=== PATIENT | male | born 1955 | race Caucasian/White ===

== ENCOUNTER → 2020-06-14 13:36 | Outpatient (BNVA) | payer OTHER, SELFPAY | PROVIDERS: PCP Internal Medicine Sports Medicine; Visit Provider Internal Medicine | DX: I10 Essential (primary) hypertension (principal); I49.3 Ventricular premature depolarization; Z79.899 Other long term (current) drug therapy | CPT/HCPCS: 93005 ==

== ENCOUNTER 2020-06-18 10:12 | Outpatient (REF) | payer OTHER, SELFPAY ==
[2020-06-18 11:04] LABS: Anion Gap 10 (12-20); Blood Urea Nitrogen 11 mg/dL (9-16); Calcium 9.3 mg/dL (8.4-10.2); Carbon Dioxide 33 mmol/L (22-29); Chloride 100 mmol/L (96-108); Estimated Glomerular Filt Rate > 60; Glucose Random 103 mg/dL (60-115); Sodium 139 mmol/L (135-145)
== END 2020-06-18 10:13 | disposition home or self-care (01) ==
LOC: HO.LAB 10:12
PROVIDERS: PCP Internal Medicine Sports Medicine; Visit Provider Internal Medicine
DX: I10 Essential (primary) hypertension (principal)
CPT/HCPCS: 80048

== ENCOUNTER → 2020-11-07 08:15 | Outpatient (BNVA) | payer OTHER, SELFPAY | PROVIDERS: PCP Internal Medicine Sports Medicine; Visit Provider Internal Medicine | DX: S01.01XA Laceration without foreign body of scalp, initial encounter (principal); W31.9XXA Contact with unspecified machinery, initial encounter | CPT/HCPCS: 12002; 90715; 99203 ==

== ENCOUNTER → 2020-11-09 10:04 | Outpatient (BNVA) | payer OTHER, SELFPAY | PROVIDERS: PCP Internal Medicine Sports Medicine; Visit Provider Physician Assistant | DX: S01.01XA Laceration without foreign body of scalp, initial encounter (principal); X58.XXXA Exposure to other specified factors, initial encounter | CPT/HCPCS: 99213 ==

== ENCOUNTER → 2020-11-17 09:01 | Outpatient (BNVA) | payer OTHER, SELFPAY | PROVIDERS: PCP Internal Medicine Sports Medicine; Visit Provider Internal Medicine | DX: S01.01XD Laceration without foreign body of scalp, subsequent encounter (principal); X58.XXXD Exposure to other specified factors, subsequent encounter | CPT/HCPCS: 99212; 99213 ==

== ENCOUNTER → 2020-11-22 15:12 | Outpatient (REF) | payer OTHER, SELFPAY ==
--- NOTE | 2020-11-22 14:35 | ECG_ITS ---
Hook-up date: 2020-11-22 15:23:00 Duration: 41:02:00 Test Indications: PVC'S Medications: 029348 QRS complexes 16537 Ventricular ectopics which represent 16 % of total QRS comp. 39 Supraventricular ectopics which represent <1 % of total QRS comp. * Paced QRS complexs which represent % of total QRS comp. VENTRICULAR ECTOPY 18697 Isolated 784 Bigeminal Cycles 1243 Couplets 42 Runs 129 Beats in Runs 5 Beats LONGEST at 123 BPM at 17:10:39 2020-11-22 3 Beats FASTEST at 174 BPM at 17:19:26 2020-11-22 SUPRAVENTRICULAR ECTOPY 31 Isolated 1 Couplets 1 Runs 6 Beats in Runs 6 Beats LONGEST at 132 BPM at 15:37:02 2020-11-22 6 Beats FASTEST at 132 BPM at 15:37:02 2020-11-22 HEART RATES 46 MIN at 03:55:59 2020-11-23 78 AVG 112 MAX at 12:12:22 2020-11-23 LONGEST RR 1.8640 secs at 03:51:18 2020-11-23 S-T LEVELS Channel 1 - 128 mm at 15:23:00 2020-11-22 - 128 mm at 15:23:00 2020-11-22 Channel 2 - 128 mm at 15:23:00 2020-11-22 - 128 mm at 15:23:00 2020-11-22 Channel 3 - 128 mm at 03:44:21 -- - 128 mm at 03:44:21 Basic rhythm Normal sinus rhythm No long pause or profound bradycardia Frequent Premature ventricular complexes , 17% of total beats, multifocal Frequent NSVT, longest 5 beats at 123 bpm and fastest 3 beats at 174 bpm Patient did not report any symptoms in the diary Referred By: Parveen Mai Overread By: BRIAN PEÑA MD
== END ==
LOC: HO.CARD 15:12
PROVIDERS: PCP Internal Medicine Sports Medicine; Visit Provider Internal Medicine
DX: I49.3 Ventricular premature depolarization (principal)
CPT/HCPCS: 93226

== ENCOUNTER → 2020-12-13 15:16 | Outpatient (BNVA) | payer OTHER, SELFPAY | PROVIDERS: PCP Internal Medicine Sports Medicine; Referring Provider Internal Medicine Sports Medicine; Visit Provider Internal Medicine ==

== ENCOUNTER → 2021-11-29 15:01 | Outpatient (BNVA) | payer OTHER, SELFPAY | PROVIDERS: PCP Internal Medicine Sports Medicine; Visit Provider Internal Medicine | DX: Z01.810 Encounter for preprocedural cardiovascular examination (principal); I49.3 Ventricular premature depolarization; I10 Essential (primary) hypertension | CPT/HCPCS: 93005 ==

== ENCOUNTER → 2021-12-05 07:19 | Outpatient (REF) | payer OTHER, SELFPAY ==
--- NOTE | 2021-12-05 07:21 | CA_ITS ---
Transthoracic Echocardiogram Patient (Last, First, Middle): Jorge Howell W Gender: Male Date of : 1955 Age: 66 Procedure Date: 12/05/2021 Procedure Type: Transthoracic Echocardiogram Location: OP Height: 180.34 cm Weight: 124.74 kg BSA: 2.41 m2 Heart Rate: 67 bpm BP: 146 / 86 mmHg Sports Medicine Masse[place]: EVERARDO Referring MD: Parveen Mai MD Building Analyst/Supervisor: Jason Olson MD Symptoms: I49.3 - Ventricular premature depolarization Study Quality: Adequate ECG Rhythm: Sinus Conclusions: - 1. Low normal LV ejection fraction 50-55% with grade 1 diastolic dysfunction 2. Normal cardiac valvular Doppler 3. No gross pericardial effusion Findings Left Ventricle Normal left ventricular cavity size. There is normal left ventricular wall thickness. The left ventricular systolic function is low normal. The visually estimated ejection fraction is between 50-55%. Spectral Doppler is indicative of an impaired relaxation filling pattern. E/E prime ratio is <8, consistent with normal filling pressures. Evidence suggests grade I (mild) diastolic dysfunction. Peak GLS is -13.4%, which is reduced. Right Ventricle Normal right ventricular cavity size and systolic function. Atria The left atrium is mildly dilated. Interatrial shunt cannot be excluded. The right atrium was not well visualized. Aortic Valve There is mild calcification of the aortic valve. There is no aortic valve stenosis. There is no aortic valve regurgitation. Mitral Valve Normal mitral valve structure and function. There is mild mitral valve regurgitation. There is no mitral valve stenosis. Pulmonic Valve The pulmonic valve was not well visualized. Tricuspid Valve The tricuspid valve was not well visualized. Tricuspid regurgitation envelope is inadequate for calculation of right ventricular systolic pressure. Great Vessels All visible segments of the aorta are normal in size. The pulmonary artery was not well visualized. Small plaque is seen in the sino tubular ridge. Venous The inferior vena cava was not well visualized. Pericardium/Pleural There is no evidence of pericardial effusion. Measurements 2D Linear Measurements IVSd: 1.13 0.6-0.9/0.6-1.0 cm LVIDd: 5.58 3.9-5.3/4.2-5.9 cm LVIDd Index: 2.32 2.4-3.2/2.2-3.1 cm/m2 LVIDs: 4.13 2.0-3.6 cm LVPWd: 0.84 0.7-1.1 cm LA Diam: 5.20 2.7-3.8/3.0-4.0 cm LAIDs Index: 2.16 1.5-2.3 cm/m2 LV Mass: 266.18 67-162/88-224 g LV Mass Index: 110.45 43-95/49-115 g/m2 LVOT Diam: 2.10 3.0+(-)1.3 cm 2D Systolic Function EF 4C: 53.40 >55% Mitral Valve MV Pk E: 0.55 MV PK A: 0.58 MV Decel Time: 229.00 E/A: 0.90 E'Lateral: 8.05 E'Medial: 6.74 E/E' Med: 8.10 E/E' Lat: 6.80 PHT: 67.00 MVA PHT: 3.28 Decel Chariton: 2.40 MR VTI: 1.93 Aortic Valve AoV Pk Adalberto: 1.37 AoV Mn Adalberto: 0.94 AoV VTI: 0.29 AoV Pk Grad: 8.00 Aov Mn Grad: 4.00 JIMBO Cont.VTI: 2.37 LVOT LVOT Pk Adalberto: 0.88 LVOT Mn Aadlberto: 0.65 LVOT VTI: 0.20 LVOT Pk Grad: 3.00 LVOT Mn Grad: 2.00 LVOT Diam: 2.10 LVOT Area: 3.46 Diastolic Function MV Pk E: 0.55 MV Pk A: 0.58 E/A: 0.90 E'Medial: 6.74 E/E' Med: 8.10 E' Laterial: 8.05 E/E' Lat: 6.80 Right Ventricle TAPSE (mm): 19.10 TVS' Adalberto: 10.40 Great Vessels Aorta Sinus of Valsalva: 3.26 2.0-3.5 cm Ao Asc: 2.70 2.1-3.4 cm Ao Arch: 3.10 Pulmonary Veins Pulm Vein S/D 1.40 Pulmonary Valve PV Pk Adalberto: 1.07 Peak PV Grad: 5.00 Updated in Other Vendor System with Status of Final Jason Olson MD electronically signed on 12/05/2021 4:49:40 PM with status of Final
== END ==
LOC: HO.CARD 07:19
PROVIDERS: Visit Provider Internal Medicine
DX: I49.3 Ventricular premature depolarization (principal)
CPT/HCPCS: 93306; 93356

== ENCOUNTER → 2021-12-08 08:23 | Outpatient (REF) | payer OTHER, SELFPAY ==
--- NOTE | ~2021-12-08 | NM_ITS ---
Myocardial perfusion study Indication: PVCs to evaluate for myocardial ischemia Technique: The patient was brought in for a Lexiscan perfusion study on 12/08/2021. Patient performed low-level exercise and was injected 0.4 mg of Lexiscan intravenously. Within a minute of injection, 40 mCi of sestamibi was given intravenously. Images were obtained using the SPECT gamma camera interlaced with the gating device. Images were obtained in supine position. Resting perfusion study was performed on 12/11/2021. Patient was administered 40 mCi of sestamibi intravenously at rest. Images were then obtained in supine position. Images obtained with and without CT attenuation. Total DLP 150 mGy-cm. Images were processed with the software and compared side to side in short axis, horizontal long axis and vertical long axis views. Findings: The stress perfusion study showed non attenuated images show mildly reduced uptake in the lateral wall of the LV myocardium as well as moderately reduced uptake in the basal inferior thinning of the mid inferior and inferoapical wall of the LV myocardium remainder of the LV myocardium is normally perfused. Non attenuated images show mildly reduced uptake in the apex of the LV myocardium.. The gated study shows normal LV systolic function with calculated LVEF of 55%. LV cavity is mildly dilated size. The gated study shows normal wall thickening and contraction of segments. Resting study shows no significant change in perfusion pattern is present attenuated corrected images.. Gating at rest reveals normal systolic wall motion with ejection fraction at 50%. The findings are consistent with no clear significant reversible defect suggestive of ischemia.. NM/NM cardiolite stress test Impression: 1. Myocardial perfusion imaging study shows likely normal myocardial perfusion 2. Gated LVEF is 55% with stress and 50% at rest 3. Transient ischemic dilatation not present but LV cavity is dilated EKG is nondiagnostic for ischemia
--- NOTE | 2021-12-08 08:33 | CA_ITS ---
Acquisition Time: 2021-12-08 08:53:13 Total Exercise Time: 00:02:00 Test Indications: PREOP Medications: SEE CHART Protocol: LEXISCAN Max HR: 105 BPM 68% of Pred: 154 BPM Max BP: 148/084 mmHG Max Work Load: 1.0 METS Pharmacological stress test with Lexiscan injection, while sitting and kicking his legs, without anginal symptoms, with frequent multifocal PVC which are isolated and in 2-3 beat runs, with normotensive response to injection, with nondiagnostic EKG for ischemia. Nuclear images pending. Test reviewed with Dr Olson. Referred By: Parveen Mai Overread By: ISAEL MANN
== END ==
LOC: HO.CARD 08:23
PROVIDERS: PCP Internal Medicine; Visit Provider Internal Medicine
DX: I49.3 Ventricular premature depolarization (principal)
CPT/HCPCS: 78452; 93017; A9500; J0280; J2785

== ENCOUNTER 2022-08-25 10:50 | Outpatient (REF) | payer OTHER, SELFPAY ==
[2022-08-25 11:54] LABS: Anion Gap 10 (12-20); Blood Urea Nitrogen 15 mg/dL (9-16); Calcium 9.3 mg/dL (8.4-10.2); Carbon Dioxide 29 mmol/L (22-29); Chloride 104 mmol/L (96-108); Estimated Glomerular Filt Rate > 60; Glucose Random 220 mg/dL (60-115); Potassium 4.2 mmol/L (3.3-5.1); Sodium 139 mmol/L (135-145)
== END 2022-08-25 10:51 | disposition home or self-care (01) ==
LOC: HO.LAB 10:50
PROVIDERS: PCP Internal Medicine; Visit Provider Internal Medicine
DX: I10 Essential (primary) hypertension (principal)
CPT/HCPCS: 36415; 80048

== ENCOUNTER 2023-05-02 14:22 | Outpatient (AMB) | payer OTHER, SELFPAY ==
[2023-05-02 14:33] VITALS: BP 132/72; PULSE 67; BMI 37.3
--- NOTE | 2023-05-02 14:33 | A.OFFVIS_ITS ---
Intake Vital Signs 05/02/23 14:33 Height 5 ft 11 in Weight 267 lb 3.204 oz BMI 37.3 BP 132/72 Blood Pressure Location Lt brachial Position Sitting Pulse 67 Intake Visit Reasons: 1 yr f/up Allergies lisinopril Adverse Reaction (Unknown, Verified 05/01/22 14:58) dizziness Medication List - Last Reconciled 05/02/23 by Rosemarie Martinez NP losartan 50 mg PO DAILY HPI HPI Comments History of Present Illness Details 67-year-old male presents for his follow -up. He has a history of hypertension and PVCs. He is only taking losartan 50 mg once a day. He denies any palpitations, chest pain, shortness of breath, or headaches. He states he does not check his blood pressures at home. Blood pressure today is well. He reports no concerns REPLACED BY [facility] Medical History Essential hypertension Surgical History Hx of LASIK (~2003) History of shoulder surgery Family History Father Prostate cancer Mother History of heart valve replacement HTN (hypertension) Social History Alcohol intake: current Alcohol intake frequency: a few times a month Patient Tobacco Use Status: Never used Tobacco Review of Systems Const Denies chills, Denies fatigue, Denies fever(s), Denies frequent falls, Denies weakness, Denies weight gain and Denies weight loss ENT Denies dizziness Card Denies chest pain, Denies chest pain with activity, Denies syncope, Denies rapid heart rate, Denies pedal edema, Denies irregular heart rhythm, Denies leg edema, Denies lightheadedness, Denies palpitations, Denies dyspnea, Denies dyspnea on exertion, Denies orthopnea and Denies other (LOC) Resp Denies cough, Denies dyspnea and Denies dyspnea on exertion GI Denies hematochezia and Denies change in bowel habits Musc Denies abnormal gait, Denies arthralgias, Denies muscle weakness, Denies numbness, Denies radiating pain into limb and Denies tingling Neuro Denies abnormal gait, Denies dizziness, Denies syncope, Denies frequent falls, Denies numbness, Denies tingling and Denies weakness Endo Denies fatigue and Denies palpitations Physical Exam Vital Signs: Last Vital Signs Pulse 67 05/02/23 14:33 BP 132/72 05/02/23 14:33 BMI result Body Mass Index 37.3 Const General: healthy appearing and no acute distress Orientation/consciousness: patient oriented x3 HEENT Head: Yes normal to inspection Eyes General: appearance normal, both eyes and all related structures Neck Neck: Yes normal visual inspection Chest Chest palpation & inspection: normal inspection of the chest Resp Effort & Inspection: normal respiratory effort Auscultation: clear to auscultation bilaterally Cardio Jugular venous distension: no JVD Palpation: normal PMI Rate: regular rate Rhythm: regular rhythm Heart sounds: S1 normal heart sound present, S2 normal heart sound present, no click, no gallops, no murmurs and no rubs GI Inspection: Yes normal to inspection Palpation (GI): Soft to palpation Skin General skin exam: no rashes or lesions noted Neuro General: patient oriented x3 Extrem General: Yes normal to inspection Psych Appearance: grossly normal Office Procedures EKG Details: EKG today. Sinus rhythm. Rate 67 beats per minute ATC 422ms. DC 248ms. No significant changes from the last [id number], Complete Assessment & Plan Assessment & Plan (1) PVC (premature ventricular contraction): Code(s): I49.3 - Ventricular premature depolarization (2) Essential hypertension: Code(s): I10 - Essential (primary) hypertension Plan Report any new or worsening symptoms. Report longstanding palpitations. Blood pressure within goal. Check periodically. Will return in one year to see Dr Mai or sooner if needed. Coding Level of Care Code Est Pt Level 3 (70609) Diagnoses PVC (premature ventricular contraction) I49.3 Essential hypertension I10 CPT Codes EKG - CPT: 95969-[id number], Complete ([id number])
== END 2023-05-02 14:50 | disposition home or self-care (01) ==
PROVIDERS: Visit Provider Nurse Practitioner
DX: I49.3 Ventricular premature depolarization (principal); I10 Essential (primary) hypertension
CPT/HCPCS: 93010; 99213

== ENCOUNTER → 2023-05-02 14:22 | Outpatient (BNVA) | payer OTHER, SELFPAY | PROVIDERS: Visit Provider Nurse Practitioner | DX: I44.0 Atrioventricular block, first degree (principal); I10 Essential (primary) hypertension; I49.3 Ventricular premature depolarization | CPT/HCPCS: 93005 ==